=== PATIENT | female | born 1970 | race Two or more races ===

== ENCOUNTER 2022-10-03 14:35 | Outpatient (REF) | payer OTHER, SELFPAY ==
--- NOTE | ~2022-10-03 | XR_ITS ---
EXAMINATION: XR ELBOW, RIGHT CLINICAL INFORMATION: Pain COMPARISON: None TECHNIQUE: AP, lateral, and oblique views of the right elbow. FINDINGS: The bones and soft tissues are normal. No fracture or joint effusion. Alignment is anatomic. Joint spaces are maintained. XR/XR elbow RT min 3V IMPRESSION: Normal right elbow.
--- NOTE | ~2022-10-03 | XR_ITS ---
EXAMINATION: XR SHOULDER, RIGHT CLINICAL INFORMATION: Right shoulder pain COMPARISON: None TECHNIQUE: AP external rotation, Grashey, scapular Y, and axillary views of the right shoulder. FINDINGS: The bones and soft tissues are normal. No fracture. Glenohumeral and acromioclavicular alignment is anatomic with normal joint space. Calcification of the acromioclavicular joint may reflect chondrocalcinosis or degenerative change. XR/XR shoulder RT min 2V IMPRESSION: Calcification of the acromioclavicular joint may reflect chondrocalcinosis or degenerative change.
[2022-10-03 16:46] LABS: C Reactive Protein 3.16 mg/dL (< or = 0.50)
[2022-10-03 17:11] LABS: Erythrocyte Sedimentation Rate 16 MM/HR (0-20)
== END 2022-10-03 14:36 | disposition home or self-care (01) ==
LOC: HO.LAB 14:35
PROVIDERS: PCP Internal Medicine; Visit Provider Internal Medicine Rheumatology
DX: M25.511 Pain in right shoulder (principal); M25.521 Pain in right elbow; M54.50 Low back pain, unspecified; M79.7 Fibromyalgia; M47.816 Spondylosis without myelopathy or radiculopathy, lumbar region
CPT/HCPCS: 36415; 73030; 73080; 85652; 86140; 99202